=== PATIENT | male | born 1945 | race Caucasian/White ===

== ENCOUNTER 2017-06-20 17:42 | Emergency (ER) | payer OTHER ==
--- NOTE | 2017-06-20 18:09 | CPEKG ---
Heart Rate: 69 RR Interval: 870 P-R Interval: 160 QRSD Interval: 98 QT Interval: 396 QTC Interval: 425 P [place]: 51 QRS [place]: -56 T Wave [place]: 23 EKG Severity - ABNORMAL ECG - EKG Impression: SINUS RHYTHM EKG Impression: LEFT ANTERIOR FASCICULAR BLOCK Electronically Signed By: Maurice Johnson 20-Jun-2017 18:39:02
--- NOTE | 2017-06-20 18:11 | EDPHY ---
H & P Stated Complaint: HTN & EKG changes Time Seen by Provider: 06/20/17 18:07 HPI/ROS: CHIEF COMPLAINT: Asymptomatic hypertension HISTORY OF PRESENT ILLNESS: The patient presents to the ED with asymptomatic hypertension. The patient was seen his nursing surgical services director today when his blood pressure was noted to be 180/100. The patient was having no chest pain or shortness of breath. He went to urgent care and an EKG was performed which reportedly was abnormal and subsequently the patient was referred to the ED for further evaluation. In the emergency department the patient denies any headache , abdominal pain, decreased urine output, prior history of hypertension or additional acute complaints. REVIEW OF SYSTEMS: A comprehensive 10 point review of systems is otherwise negative aside from elements mentioned in the history of present illness. Source: Patient Exam Limitations: No limitations - Personal History Current Tetanus/Diphtheria Vaccine: Unsure Current Tetanus Diphtheria and Acellular Pertussis (TDAP): Unsure - Medical/Surgical History Hx Asthma: No Hx Chronic Respiratory Disease: No Hx Diabetes: No Hx Cardiac Disease: No Hx Renal Disease: No Hx Cirrhosis: No Hx Alcoholism: No Hx HIV/AIDS: No Hx Splenectomy or Spleen Trauma: No Other PMH: BPH - Social History Smoking Status: Never smoked - Physical Exam Exam: General Appearance: Alert, no distress Eyes: Pupils equal and round no pallor or injection ENT, Mouth: Mucous membranes moist Respiratory: There are no retractions, lungs are clear to auscultation Cardiovascular: Regular rate and rhythm Gastrointestinal: Abdomen is soft and nontender, no masses, bowel sounds normal Neurological: A&O, normal motor function, normal sensory exam, normal cranial nerves Skin: Warm and dry, no rashes Musculoskeletal: Neck is supple nontender Extremities: symmetrical, full range of motion Constitutional: Initial Vital Signs Temperature (C) 36.6 C 06/20/17 17:46 Heart Rate 80 06/20/17 17:46 Respiratory Rate 16 06/20/17 17:46 Blood Pressure 192/112 H 06/20/17 17:46 O2 Sat (%) 96 06/20/17 17:46 O2 Delivery Mode Room Air Allergies/Adverse Reactions: No Known Allergies Allergy (Unverified 09/29/15 18:31) Home Medications: Medication Instructions Recorded Cholecalciferol Vit D3 [Vitamin D3 1,000 units PO DAILY 09/29/15 (*)] Dutasteride [Avodart 0.5 MG (*)] 0.5 mg PO DAILY 09/29/15 Multivitamins [Multivitamin (*)] 1 each PO DAILY 09/29/15 [place]-3 Fatty Acids [Fish Oil 1000 1,000 mg PO DAILY 09/29/15 mg (*)] Lisinopril 10 mg PO DAILY #30 tablet 06/20/17 Medical Decision Making - Diagnostics EKG Interpretation: EKG: Complete interpretation has been separately recorded in the [employer] archive. Summary impression: Left anterior fascicular block, unchanged from prior EKG ED Course/Re-evaluation: I reviewed the patient's past medical records. He has had an unremarkable treadmill stress test within the past 2 years. His EKG today demonstrates a left anterior fascicular block without acute ischemic changes. The patient's kidney function is noted to be within normal limits. The patient was given 10 mg of oral lisinopril. Patient's blood pressure has improved in the emergency department. Patient is comfortable being discharged home as he has no symptoms of a hypertensive emergency. The patient will follow up with our on-call outpatient physician Dr. Hdz for a blood pressure recheck in the next week. The patient has been instructed to return to the ED for chest pain, difficulty breathing or other concerns. Patient re-examined at 8:00 p.m., blood pressure currently 170/98. Differential Diagnosis: Differential diagnosis considered includes essential hypertension, hypertensive emergency, hypertensive urgency, ischemia, cardiac arrhythmia - Data Points Laboratory Results: Laboratory Results 06/20/17 18:23 06/20/17 18:23 06/20/17 06/20/17 18:23 18:23 WBC 7.04 10^3/uL 10^3/uL (3.80-9.50) RBC 5.05 10^6/uL 10^6/uL (4.40-6.38) Hgb 15.7 g/dL g/dL (13.7-17.5) Hct 44.4 % % (40.0-51.0) MCV 87.9 fL fL (81.5-99.8) MCH 31.1 pg pg (27.9-34.1) MCHC 35.4 g/dL g/dL (32.4-36.7) RDW 13.2 % % (11.5-15.2) Plt Count 206 10^3/uL 10^3/uL (150-400) MPV 9.5 fL fL (8.7-11.7) Neut % (Auto) 72.3 % % (39.3-74.2) Lymph % (Auto) 19.6 % % (15.0-45.0) [place] % (Auto) 6.1 % % (4.5-13.0) Eos % (Auto) 0.9 % % (0.6-7.6) Baso % (Auto) 0.7 % % (0.3-1.7) Nucleat RBC Rel Count 0.0 % % (0.0-0.2) Absolute Neuts (auto) 5.09 10^3/uL 10^3/uL (1.70-6.50) Absolute Lymphs (auto) 1.38 10^3/uL 10^3/uL (1.00-3.00) Absolute Monos (auto) 0.43 10^3/uL 10^3/uL (0.30-0.80) Absolute Eos (auto) 0.06 10^3/uL 10^3/uL (0.03-0.40) Absolute Basos (auto) 0.05 10^3/uL 10^3/uL (0.02-0.10) Absolute Nucleated RBC 0.00 10^3/uL 10^3/uL (0-0.01) Immature Gran % 0.4 % % (0.0-1.1) Immature Gran # 0.03 10^3/uL 10^3/uL (0.00-0.10) Sodium 142 mEq/L mEq/L (134-144) Potassium 4.0 mEq/L mEq/L (3.5-5.2) Chloride 108 mEq/L mEq/L (97-110) Carbon Dioxide 21 mEq/l L mEq/l (22-31) Anion Gap 13 mEq/L mEq/L (8-16) BUN 15 mg/dL mg/dL (7-23) Creatinine 0.9 mg/dL mg/dL (0.7-1.3) Estimated GFR > 60 Glucose 113 mg/dL H mg/dL (70-100) Calcium 9.7 mg/dL mg/dL (8.5-10.4) Troponin I < 0.012 ng/mL ng/mL (0-0.034) Departure - Departure Disposition: Home, Routine, Self-Care Clinical Impression: Hypertension Condition: Good Instructions: Hypertension (ED) Additional Instructions: 1. Please begin lisinopril as directed for your elevated blood pressure. 2. Please follow up with the on-call outpatient physician you have been referred to for a blood pressure recheck within the next 1-2 weeks. 3. Please check your blood pressure in the morning and night and keep a log of the reading. 4. Please return to the ED for markedly elevated blood pressure, headache, numbness, weakness, chest pain, difficulty breathing or other concerns. Referrals: Brandin Hdz DO [Medical Doctor] - As per Instructions Prescriptions: Lisinopril 10 mg PO DAILY #30 tablet
[2017-06-20 18:37] LABS: % IMMATURE GRANULYOCYTES 0.4 % (0.0-1.1); ABSOLUTE IMMATURE GRANULOCYTES 0.03 10^3/uL (0.00-0.10); ADD DIFF? NO; ADD MORPH? NO; ADD SCAN? NO; ATYPICAL LYMPHOCYTE FLAG 0 (0-99); FRAGMENT RBC FLAG 0 (0-99); HEMATOCRIT 44.4 % (40.0-51.0); HEMOGLOBIN 15.7 g/dL (13.7-17.5); LEFT SHIFT FLG 0 (0-99); LIPEMIA HEMOLYSIS FLAG 90 (0-99); MEAN CELL HEMOGLOBIN 31.1 pg (27.9-34.1); MEAN CELL HEMOGLOBIN CONCENTR. 35.4 g/dL (32.4-36.7); MEAN CELL VOLUME 87.9 fL (81.5-99.8); MEAN PLATELET VOLUME 9.5 fL (8.7-11.7); PLATELET CLUMPS FLAG 0 (0-99); PLATELET COUNT 206 10^3/uL (150-400); RED BLOOD CELL COUNT 5.05 10^6/uL (4.40-6.38); RED CELL DISTRIBUTION WIDTH 13.2 % (11.5-15.2)
[2017-06-20 19:13] LABS: ANION GAP 13 mEq/L (8-16); CALCIUM 9.7 mg/dL (8.5-10.4); CARBON DIOXIDE 21 mEq/l (22-31); CHLORIDE 108 mEq/L (97-110); CREATININE 0.9 mg/dL (0.7-1.3); GLOMERULAR FILTRATION RATE > 60; GLUCOSE 113 mg/dL (70-100); SODIUM 142 mEq/L (134-144)
[2017-06-20] MEDS ORDERED: LISINOPRIL 20 MG TAB ONE (19:15)
[2017-06-20 19:24] LABS: TROPONIN I < 0.012 ng/mL (0-0.034)
[2017-06-20 20:05] VITALS: RESP 16
[2017-06-20 20:21] VITALS: BP 157/84; PULSE 75; TEMP 97.7; O2SAT 98
[2017-06-21] MEDS ORDERED: LISINOPRIL 10 MG TAB PO ONE (09:00)
== END 2017-06-20 20:28 | disposition home or self-care (01) ==
DX: I10 Essential (primary) hypertension (principal)

== ENCOUNTER 2017-06-26 18:18 | Emergency (ER) | payer OTHER ==
[2017-06-26] MEDS ORDERED: LISINOPRIL 20 MG TAB PO ONE (19:05)
--- NOTE | 2017-06-26 19:55 | CPEKG ---
Heart Rate: 64 RR Interval: 938 P-R Interval: 156 QRSD Interval: 98 QT Interval: 408 QTC Interval: 421 P [place]: 36 QRS Home: -42 T Wave Home: 26 EKG Severity - OTHERWISE NORMAL ECG - EKG Impression: SINUS RHYTHM EKG Impression: LEFT AXIS DEVIATION Electronically Signed By: Suhail Joel 26-Jun-2017 21:19:50
[2017-06-26 20:13] VITALS: RESP 16; O2SAT 96
--- NOTE | 2017-06-26 20:21 | EDPHY ---
H & P Time Seen by Provider: 06/26/17 18:47 HPI/ROS: Chief complaint. High blood pressure HPI. 71-year-old male here with asymptomatic hypertension. He was seen June 20 for same. He had not previously been hypertensive. He was had a normal workup and he was started on lisinopril 10 mg. Today he was taking his blood pressure and it was slightly elevated this morning 162/92. This evening it was 219/113 at home. He has no headache, visual symptoms, abdominal pain, chest pain, shortness of breath, focal weakness or paresthesias. 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 However he does have a follow-up appointment next Saturday ROS Constitutional. no fever/chills, no weakness Eyes. no problems with vision ENT. no sore throat, no nasal drainage Cardiovascular. no chest pain Respiratory. no shortness of breath, no cough Abdominal. no abdominal pain, no nausea/vomiting, no diarrhea . no problems urinating MS. no calf pain/swelling, no neck/back pain, no joint pain Skin. no rash Lymph. no swollen glands Neuro. no headache, no dizziness, no difficulty walking or with speech Past Medical/Surgical History: BPH, hypertension Social History: Single, nonsmoker, no alcohol Smoking Status: Never smoked Physical Exam: General Appearance: Alert well-developed male no distress vital signs significant for blood pressure 195/105 Eyes: Pupils equal and round no pallor or injection. ENT, Mouth: Mucous membranes are moist. Respiratory: There are no retractions, lungs are clear to auscultation. Cardiovascular: Regular rate and rhythm. Gastrointestinal: Abdomen is soft and nontender, no masses, bowel sounds normal. Neurological: Awake and alert, sensory and motor exams grossly normal. Skin: Warm and dry, no rashes. Musculoskeletal: Neck is supple nontender. Extremities symmetrical, full range of motion. Psychiatric: Patient is oriented X 3, there is no agitation. Constitutional: Initial Vital Signs Temperature (C) 36.8 C 06/26/17 18: Heart Rate 84 06/26/17 18: Respiratory Rate 18 06/26/17 18: Blood Pressure 195/105 H 06/26/17 18: O2 Sat (%) 95 06/26/17 18: O2 Delivery Mode Room Air Allergies/Adverse Reactions: No Known Allergies Allergy (Verified 06/26/17 18:25) Home Medications: Medication Instructions Recorded Cholecalciferol Vit D3 [Vitamin D3 1,000 units PO DAILY 09/29/15 (*)] Dutasteride [Avodart 0.5 MG (*)] 0.5 mg PO DAILY 09/29/15 Multivitamins [Multivitamin (*)] 1 each PO DAILY 09/29/15 [place]-3 Fatty Acids [Fish Oil 1000 1,000 mg PO DAILY 09/29/15 mg (*)] Lisinopril 10 mg PO DAILY #30 tablet 06/20/17 Lisinopril [Zestril 20 mg (*)] 20 mg PO DAILY #10 tab 06/26/17 Medical Decision Making - Diagnostics EKG Interpretation: EKG interpreted by me shows normal sinus rhythm with normal interval. Left axis deviation. QRS is otherwise normal. There is no significant ST elevation or depression. The rate is 64. This is unchanged from EKG on 06/20/2017 Procedures: Lisinopril 20 mg by mouth ED Course/Re-evaluation: Re-evaluation 8:15 p.m. patient is stable and without symptoms. Patient and I discussed treatment plan, criteria for return, importance of follow-up and further evaluation. He expresses understanding and agreement Differential Diagnosis: Apparent new onset of central hypertension. No evidence for end-organ compromise. We will increase the dose and asked him to follow up next Saturday with his new physician for further blood pressure adjustment - Data Points Medications Given: Discontinued Medications Lisinopril (Zestril) 20 mg PO EDNOW ONE Stop: 06/26/17 19:06 Last Admin: 06/26/17 19:52 Dose: 20 mg Departure - Departure Disposition: Home, Routine, Self-Care Clinical Impression: Hypertension Qualifiers: Hypertension type: essential hypertension Qualified Code(s): I10 - Essential ( primary) hypertension Condition: Good Instructions: Hypertension (ED) Additional Instructions: Increase lisinopril to 20 mg daily. Return for headache, chest discomfort, change in your vision, shortness of breath, abdominal pain. Keep your appointment on Saturday for further evaluation treatment of your blood pressure Referrals: NONE *PRIMARY CARE P,. [Primary Care Provider] - As per Instructions Prescriptions: Lisinopril [Zestril 20 mg (*)] 20 mg PO DAILY #10 tab
[2017-06-26 21:21] VITALS: BP 169/105; PULSE 74; TEMP 97.9
== END 2017-06-26 21:21 | disposition home or self-care (01) ==
DX: I10 Essential (primary) hypertension (principal)

== ENCOUNTER 2018-06-24 13:04 | Emergency (ER) | payer OTHER ==
--- NOTE | 2018-06-24 13:19 | EDPHY ---
H & P Stated Complaint: BURNING FEELING IN CHEST AND L ARM/PROB WORD FINDING NOTED DURING ACUPUNCTU Time Seen by Provider: 06/24/18 13:19 HPI/ROS: CHIEF COMPLAINT: 1. Mild expressive aphasia 2. Posterior chest pain HISTORY OF PRESENT ILLNESS: The patient presents the ED after he developed a episode of mild expressive aphasia earlier today. The patient denies any associated headache, peripheral numbness, weakness or vision changes. He denies any history of fall or trauma. He denies neck pain or cervical manipulation. Additionally over the past 4-5 days the patient has had a posterior left of midline chest pain. It is not worsened with exertion. It is slightly worsened with movement. He denies any associated rash. The patient has a history of hypertension and takes lisinopril and amlodipine for this condition. He denies history of coronary artery disease. He does have a history of a TIA approximately 4 years ago with similar symptoms. REVIEW OF SYSTEMS: A comprehensive 10 point review of systems is otherwise negative aside from elements mentioned in the history of present illness. Source: Patient Exam Limitations: No limitations - Personal History Current Tetanus Diphtheria and Acellular Pertussis (TDAP): Yes - Medical/Surgical History Hx Asthma: No Hx Chronic Respiratory Disease: No Hx Diabetes: No Hx Cardiac Disease: No Hx Renal Disease: No Hx Cirrhosis: No Hx Alcoholism: No Hx HIV/AIDS: No Hx Splenectomy or Spleen Trauma: No Other PMH: BPH/htn - Social History Smoking Status: Never smoked - Physical Exam Exam: General Appearance: Alert, no distress Eyes: Pupils equal and round no pallor or injection ENT, Mouth: Mucous membranes moist Respiratory: There are no retractions, lungs are clear to auscultation Cardiovascular: Regular rate and rhythm Gastrointestinal: Abdomen is soft and nontender, no masses, bowel sounds normal Neurological: A&O, normal motor function, normal sensory exam, normal cranial nerves, NIH stroke scale 0, speech fluent Skin: Warm and dry, no rashes Musculoskeletal: Neck is supple nontender, no carotid bruit Extremities: symmetrical, full range of motion Psychiatric: Patient is oriented X 3, there is no agitation Constitutional: Initial Vital Signs Temperature (C) 36.6 C 06/24/18 13:06 Heart Rate 84 06/24/18 13:06 Respiratory Rate 18 06/24/18 13:06 Blood Pressure 194/107 H 07/24/18 13:06 O2 Sat (%) 95 06/24/18 13:06 O2 Delivery Mode Room Air Allergies/Adverse Reactions: No Known Allergies Allergy (Verified 06/24/18 13:05) Home Medications: Medication Instructions Recorded Cholecalciferol Vit D3 [Vitamin D3 1,000 units PO DAILY 09/29/15 (*)] Multivitamins [Multivitamin (*)] 1 each PO DAILY 09/29/15 [place]-3 Fatty Acids [Fish Oil 1000 1,000 mg PO DAILY 09/29/15 mg (*)] Lisinopril 10 mg PO DAILY #30 tablet 06/20/17 Lisinopril [Zestril 20 mg (*)] 20 mg PO DAILY #10 tab 06/26/17 Medical Decision Making - Diagnostics EKG Interpretation: EKG: Complete interpretation has been separately recorded in the [employer] archive. Summary impression: Sinus rhythm, rate 77, no ST segment elevation or depression, slight left axis deviation Imaging Results: Imaging Impressions Head CT 06/24/18 13:53 Impression: 1. Mild age-related atrophy. 2. No hemorrhage, mass effect, or definite acute peripheral infarct. 3. Minimal nonspecific hypodensities in the white matter of bilateral cerebral hemispheres. Differential diagnosis includes microvascular ischemic disease, post-infectious/post-inflammatory sequela, atypical demyelinating disease, or migraine-related sequela. Small white matter lacunar infarcts may also have this appearance. Findings discussed with Maurice Johnson M.D. at 14:55 hour, 06/24/2018. ED Course/Re-evaluation: The patient presents the ED with 2 issues 1st is a brief episode of word- finding difficulty earlier today. The patient arrived and was noted to be neurologically intact with NIH stroke scale is 0. His speech was fluent. Secondarily, the patient has been experiencing some vague atypical left posterior chest pain. The patient's EKG demonstrates no evidence of ischemia and his troponin is normal. The patient was taken for CT scan of the head and angiographic studies of the head neck and chest. I re-evaluated the patient at 2:45 p.m. He continues to be intact neurologically. I did tell the patient my preference would be for hospitalization in the setting of a possible TIA. The patient does understand the increased risk of stroke following a TIA however would like to be discharged home. He would like to follow up with Neurology as an outpatient and does understand that he should return to the ED immediately for any worsening neurologic symptoms. Regarding the patient's chest pain is atypical in nonexertional. His EKG and troponin are normal. He will be provided the number of our on-call rn research for follow-up for consideration of a treadmill stress test. The patient's blood pressure is currently 150/60. CT angiography of the chest does demonstrate coronary calcifications without evidence of dissection or pulmonary embolism. CT head demonstrates no evidence of an infarct or hemorrhage and CT angiography of the head neck demonstrates no evidence of significant stenosis or dissection. Differential Diagnosis: Differential diagnosis considered includes stroke, TIA, carotid occlusion, acute coronary syndrome, aortic dissection - Data Points Laboratory Results: Laboratory Results 06/24/18 13:00 06/24/18 13:00 06/24/18 06/24/18 06/24/18 13:49 13:26 13:00 WBC RBC Hgb POC Hgb 14.3 gm/dL gm/dL (13.7-17.5) Hct POC Hct 42 % % (40-51) MCV MCH MCHC RDW Plt Count MPV Neut % (Auto) Lymph % (Auto) [place] % (Auto) Eos % (Auto) Baso % (Auto) Nucleat RBC Rel Count Absolute Neuts (auto) Absolute Lymphs (auto) Absolute Monos (auto) Absolute Eos (auto) Absolute Basos (auto) Absolute Nucleated RBC Immature Gran % Immature Gran # POC Sodium 140 mEq/L mEq/L (135-145) Sodium 138 mEq/L mEq/L (135-145) POC Potassium 3.6 mEq/L mEq/L (3.3-5.0) Potassium 3.9 mEq/L mEq/L (3.3-5.0) POC Chloride 107 mEq/L mEq/L (97-110) Chloride 106 mEq/L mEq/L (97-110) Carbon Dioxide 21 mEq/l L mEq/l (22-31) Anion Gap 11 mEq/L mEq/L (8-16) POC BUN 14 mg/dL mg/dL (7-23) BUN 15 mg/dL mg/dL (7-23) Creatinine 0.8 mg/dL mg/dL (0.7-1.3) POC Creatinine 0.8 mg/dL mg/dL (0.7-1.3) Estimated GFR > 60 Glucose 90 mg/dL mg/dL (70-100) POC Glucose 88 mg/dL mg/dL (70-100) Calcium 9.8 mg/dL mg/dL (8.5-10.4) POC Troponin I 0.00 ng/mL ng/mL (0.00-0.08) 06/24/18 13:00 WBC 7.46 10^3/uL 10^3/uL (3.80-9.50) RBC 5.42 10^6/uL 10^6/uL (4.40-6.38) Hgb 16.7 g/dL g/dL (13.7-17.5) POC Hgb Hct 47.0 % % (40.0-51.0) POC Hct MCV 86.7 fL fL (81.5-99.8) MCH 30.8 pg pg (27.9-34.1) MCHC 35.5 g/dL g/dL (32.4-36.7) RDW 13.2 % % (11.5-15.2) Plt Count 218 10^3/uL 10^3/uL (150-400) MPV 9.3 fL fL (8.7-11.7) Neut % (Auto) 71.8 % % (39.3-74.2) Lymph % (Auto) 22.0 % % (15.0-45.0) [place] % (Auto) 4.3 % L % (4.5-13.0) Eos % (Auto) 0.8 % % (0.6-7.6) Baso % (Auto) 0.7 % % (0.3-1.7) Nucleat RBC Rel Count 0.0 % % (0.0-0.2) Absolute Neuts (auto) 5.36 10^3/uL 10^3/uL (1.70-6.50) Absolute Lymphs (auto) 1.64 10^3/uL 10^3/uL (1.00-3.00) Absolute Monos (auto) 0.32 10^3/uL 10^3/uL (0.30-0.80) Absolute Eos (auto) 0.06 10^3/uL 10^3/uL (0.03-0.40) Absolute Basos (auto) 0.05 10^3/uL 10^3/uL (0.02-0.10) Absolute Nucleated RBC 0.00 10^3/uL 10^3/uL (0-0.01) Immature Gran % 0.4 % % (0.0-1.1) Immature Gran # 0.03 10^3/uL 10^3/uL (0.00-0.10) POC Sodium Sodium POC Potassium Potassium POC Chloride Chloride Carbon Dioxide Anion Gap POC BUN BUN Creatinine POC Creatinine Estimated GFR Glucose POC Glucose Calcium POC Troponin I Point of Care Test Results: Chemistry 06/24/18 06/24/18 13:49 13:26 POC Sodium 140 mEq/L mEq/L (135-145) POC Potassium 3.6 mEq/L mEq/L (3.3-5.0) POC Chloride 107 mEq/L mEq/L (97-110) POC BUN 14 mg/dL mg/dL (7-23) POC Creatinine 0.8 mg/dL mg/dL (0.7-1.3) POC Glucose 88 mg/dL mg/dL (70-100) POC Troponin I 0.00 ng/mL ng/mL (0.00-0.08) ISTAT H&H 06/24/18 13:49 POC Hgb 14.3 gm/dL gm/dL (13.7-17.5) POC Hct 42 % % (40-51) Departure - Departure Disposition: Home, Routine, Self-Care Clinical Impression: TIA (transient ischemic attack), Chest pain Condition: Good Instructions: Transient Ischemic Attack (ED), Chest Pain (ED) Additional Instructions: 1. You were offered admission to the hospital for observation of a possible transient ischemic attack in further workup. You have declined. Please return to the Emergency Department immediately should you reconsider this decision. You have also been given the number of our on-call neurologist, Dr. Jack Ingram. Please contact their office to schedule a follow-up visit. 2. I do recommend taking a 325 mg aspirin on a daily basis. 3. Your cardiac workup is unrevealing. I do recommend following up with Cardiology for consideration of a treadmill stress test. You have been provided the contact information of our on-call rn research Dr. Jhony Bueno. Your chest CT scan demonstrates no evidence of a obvious aneurysm or blood clot. You do have calcifications noted in your coronary arteries which should be evaluated by Cardiology as an outpatient. Referrals: Jhony Bueno MD [Medical Doctor] - As per Instructions Jack Ingram DO [Medical Doctor] - As per Instructions
--- NOTE | 2018-06-24 13:36 | CPEKG ---
Heart Rate: 77 RR Interval: 779 P-R Interval: 156 QRSD Interval: 98 QT Interval: 392 QTC Interval: 444 P [place]: 52 QRS [place]: -38 T Wave [place]: 45 EKG Severity - OTHERWISE NORMAL ECG - EKG Impression: SINUS RHYTHM EKG Impression: LEFT AXIS DEVIATION Electronically Signed By: Maurice Johnson 24-Jun-2018 13:41:16
[2018-06-24 13:43] LABS: PLATELET COUNT 218 10^3/uL (150-400)
[2018-06-24] MEDS ORDERED: IOPAMIDOL (ISOVUE 370) 100 ML BTL IV ONE (14:04)
[2018-06-24 15:09] VITALS: BP 138/78
== END 2018-06-24 15:08 | disposition home or self-care (01) ==
DX: G45.9 Transient cerebral ischemic attack, unspecified (principal); I10 Essential (primary) hypertension
CPT/HCPCS: 70450; 70496; 70498; 71275; 93005; 99285; Q9967; 82435-PO; 82565-PO; 82947-PO; 84132-PO; 84295-PO; 84484-PO; 84520-PO; 85014-PO

== ENCOUNTER 2019-03-13 06:50 | Emergency (ER) | payer OTHER ==
[2019-03-13 06:56] VITALS: BP 126/92
--- NOTE | 2019-03-13 07:07 | EDPHY ---
H & P Stated Complaint: unable to urinate, last void 2230 Time Seen by Provider: 03/13/19 07:00 - Personal History Current Tetanus/Diphtheria Vaccine: Yes - Medical/Surgical History Hx Asthma: No Hx Chronic Respiratory Disease: No Hx Diabetes: No Hx Cardiac Disease: No Hx Renal Disease: No Hx Cirrhosis: No Hx Alcoholism: No Hx HIV/AIDS: No Hx Splenectomy or Spleen Trauma: No Other PMH: BPH/htn - Social History Smoking Status: Never smoked Constitutional: Initial Vital Signs Temperature (C) 36.5 C 03/13/19 06:52 Heart Rate 106 H 03/13/19 06:52 Respiratory Rate 18 03/13/19 06:52 Blood Pressure 126/92 H 03/13/19 06:52 O2 Sat (%) 95 03/13/19 06:52 O2 Delivery Mode Room Air Allergies/Adverse Reactions: No Known Allergies Allergy (Verified 06/24/18 13:05) Home Medications: Medication Instructions Recorded Cholecalciferol Vit D3 [Vitamin D3 1,000 units PO DAILY 09/29/15 (*)] Multivitamins [Multivitamin (*)] 1 each PO DAILY 09/29/15 [place]-3 Fatty Acids [Fish Oil 1000 1,000 mg PO DAILY 09/29/15 mg (*)] Lisinopril 10 mg PO DAILY #30 tablet 06/20/17 Lisinopril [Zestril 20 mg (*)] 20 mg PO DAILY #10 tab 06/26/17 Amiloride 03/13/19 Cephalexin [Keflex (RX)] 500 mg PO TID #14 cap 03/13/19 Medical Decision Making ED Course/Re-evaluation: CHIEF COMPLAINT: Urinary retention HISTORY OF PRESENT ILLNESS: The patient is a 73 y/o male with a history of BPH complaining of an inability to urinate since 22:30 last night, 9 hours ago. The patient states that he normally does not get up in the middle of the night to urinate. Around 5 years ago he had similar symptoms and required a catheter for several days. He is followed by Dr. Ontiveros, urologist, who he saw 2 days ago. No fever, headache, body aches, lightheadedness, chest pain, heart palpitations, shortness of breath , cough, abdominal pain, bowel complaints, numbness, paresthesias. REVIEW OF SYSTEMS: A 10 point review of systems was performed and is negative with the exception of the elements mentioned in the history of present illness. PHYSICAL EXAM: HR, BP, O2 Sat, RR. Temp noted General Appearance: Alert, well hydrated, appropriate, and non-toxic appearing. Head: Atraumatic without scalp tenderness or obvious injury Eyes: Pupils equal, round, reactive to light and accommodation, EOMI, no trauma , no injection. Ears: Clear bilaterally, no perforation, normal landmarks Nose: Atraumatic, no rhinorrhea, clear. Throat: There is no erythema or exudates, no lesions, normal tonsils, mucus membranes moist. Neck: Supple, 2+ carotid upstroke, nontender, no lymphadenopathy. Respiratory: No retractions, no distress, no wheezes, and no accessory muscle use. Lungs are clear to auscultation bilaterally. Cardiovascular: Regular rate and rhythm, no murmurs, rubs, or gallops. Bilateral carotid, radial, dorsalis pedis, and posterior tibial pulses intact. Good capillary refill all extremities. Gastrointestinal: Abdomen is soft, nontender, non-distended, no masses, no rebound, no guarding, no peritoneal signs. Musculoskeletal: Normal active ROM of all extremities, atraumatic. Neurological: Alert, appropriate, and interactive. The patient has normal DTRs and non-focal cranial nerves, motor, sensory, and cerebellar exam. Skin: No rashes, good turgor, no nodules on palpation. Past medical history: BPH, hypertension Past surgical history: Denies Family history: Denies Social history: DIAGNOSTICS/PROCEDURES/CRITICAL CARE TIME: Bladder scan: 700mL DIFFERENTIAL DIAGNOSIS: The differential diagnosis for the patient's urinary retention included but was not limited to medication side effect, neurologic causes, outflow obstruction including prostatic hypertrophy, and infection. MEDICAL DECISION MAKING: This patient has 700 mL of urine in his bladder based on ultrasound scan. He has had a similar episode about 2 years ago. He is followed by Urology for an enlarged prostate but it does not seem to affect his urethra or his urination. He does not even get up at night to urinate usually. Last time this happened he stated they took the catheter out after a couple of days and he did need any further procedures. We will do a similar thing today. Catheter has been placed with 600 out so far and still draining. There is a small amount of blood in his urine. He will follow up with his urologist. I will send the urine for analysis however I will start him on Keflex due to the indwelling catheter regardless and will discharge him home before the urinalysis is back. - Data Points Laboratory Results: 03/13/19 07:35 Urine Color YELLOW Urine Appearance CLEAR Urine pH 6.0 (5.0-7.5) Ur Specific [place] 1.006 (1.002-1.030) Urine Protein NEGATIVE (NEGATIVE) Urine Ketones NEGATIVE (NEGATIVE) Urine Blood 2+ H (NEGATIVE) Urine Nitrate NEGATIVE (NEGATIVE) Urine Bilirubin NEGATIVE (NEGATIVE) Urine Urobilinogen NEGATIVE EU EU (0.2-1.0) Ur Leukocyte Esterase NEGATIVE (NEGATIVE) Urine RBC Pending Urine WBC Pending Ur Epithelial Cells Pending Urine Glucose NEGATIVE (NEGATIVE) Medications Given: Discontinued Medications Cephalexin HCl (Keflex) 500 mg PO EDNOW ONE PRN Reason: Protocol Stop: 03/13/19 07:20 Last Admin: 03/13/19 07:48 Dose: 500 mg Departure - Departure Disposition: Home, Routine, Self-Care Clinical Impression: Acute retention of urine Condition: Good Instructions: Cephalexin (By mouth), Urinary Retention in Men (ED), Rodriguez Catheter Placement and Care (ED) Additional Instructions: 1.Take Keflex as prescribed. 2. Follow up with a urologist to have the catheter removed. 3. Return to the Emergency Department for fever, worsening pain, flank pain or failure to improve within 72 hours. Referrals: Joe Chen MD [Primary Care Provider] - As per Instructions Anshul Ontiveros MD [Medical Doctor] - 2-3 days, call for appt. Prescriptions: Cephalexin [Keflex (RX)] 500 mg PO TID #14 cap Report Scribed for: Suhail Joel Report Scribed by: Shiela Wheat Date of Report: 03/13/19 Time of Report: 07:29
[2019-03-13] MEDS ORDERED: CEPHALEXIN 500 MG CAP PO ONE (07:19)
== END 2019-03-13 07:45 | disposition home or self-care (01) ==
PROC: 0T9B70Z Drainage of Bladder with Drainage Device, Via Natural or Artificial Opening (ICD-10-PCS; principal; 2019-03-13)
PROC: 4A0D7LZ Measurement of Urinary Volume, Via Natural or Artificial Opening (ICD-10-PCS; principal; 2019-03-13)
DX: N40.1 Benign prostatic hyperplasia with lower urinary tract symptoms (principal); R33.9 Retention of urine, unspecified; I10 Essential (primary) hypertension

== ENCOUNTER 2019-03-13 12:18 | Emergency (ER) | payer OTHER ==
--- NOTE | 2019-03-13 12:23 | EDPHY ---
H & P Stated Complaint: catheter leaking Time Seen by Provider: 03/13/19 12:23 HPI/ROS: HPI: This is a 73-year-old male who presents with Chief Complaint: Rodriguez catheter leaking Location: Quality: Rodriguez catheter leaking Duration: 1 hr prior to arrival Signs and Symptoms: no fever, no nausea, no vomiting, no hematemesis, no blood in stool, no abdominal bloating, no diarrhea, no back pain, no urinary symptoms , no testicular/groin pain, no indigestion, no chest pain, no shortness of breath Timing: Acute Severity: Moderate Context: Patient was seen this morning with complaints of urinary retention with Rodriguez catheter placement and removal of 700 cc from the bladder. Patient reports that approximately 1 hr ago urine started leaking around the catheter tubing. He has an appointment with Dr. Ontiveros on Saturday for follow-up. Urinalysis was performed earlier in the morning and showed no signs of infection started on Keflex for prophylaxis. Modifying Factors: See above Comment: ROS: A comprehensive 10 system review of systems is otherwise negative aside from elements mentioned in the history of present illness. 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 Family history noncontributory. CONSTITUTIONAL: Extremely polite and talkative well-appearing, elderly male, awake and alert, no obvious distress HEENT: Atraumatic and normocephalic, PERRL, EOMI. Wears glasses Nares patent; no rhinorrhea; no nasal mucosal edema. Tympanic membranes clear. Oropharynx clear, no exudate and moist pink mucosa. Airway patent. No lymphadenopathy. No meningismus. Cardiovascular: Normal S1/S2, regular rate, regular rhythm, without murmur rub or gallop. PULMONARY/CHEST: Symmetrical and nontender. Clear to auscultation bilaterally. Good air movement. No accessory muscle usage. ABDOMEN: Soft, nondistended, nontender, no rebound, no guarding, no peritoneal signs, no masses or organomegaly. No CVAT. Male : circumcised penis, bilateral descended testes, no testicular swelling, no testicular masses, no penile discharge, no lesions, negative Prehn's sign. Rodriguez catheter present in urethra. EXTREMITIES: 2/2 pulses, strength 5/5, no deformities, no clubbing, no cyanosis or edema. NEUROLOGICAL: no focal neuro deficits. GCS 15. SKIN: Warm and dry, no erythema. no rash. Good capillary refill. Source: Patient, RN/MD, Old records Exam Limitations: No limitations - Medical/Surgical History Hx Asthma: No Hx Chronic Respiratory Disease: No Hx Diabetes: No Hx Cardiac Disease: No Hx Renal Disease: No Hx Cirrhosis: No Hx Alcoholism: No Hx HIV/AIDS: No Hx Splenectomy or Spleen Trauma: No Other PMH: BPH/htn - Social History Smoking Status: Never smoked Constitutional: Initial Vital Signs Temperature (C) 36.8 C 03/13/19 12:18 Heart Rate 96 03/13/19 12:18 Respiratory Rate 16 03/13/19 12:18 Blood Pressure 157/84 H 03/13/19 12:18 O2 Sat (%) 96 03/13/19 12:18 O2 Delivery Mode Room Air Allergies/Adverse Reactions: No Known Allergies Allergy (Verified 06/24/18 13:05) Home Medications: Medication Instructions Recorded Cholecalciferol Vit D3 [Vitamin D3 1,000 units PO DAILY 09/29/15 (*)] Multivitamins [Multivitamin (*)] 1 each PO DAILY 09/29/15 [place]-3 Fatty Acids [Fish Oil 1000 1,000 mg PO DAILY 09/29/15 mg (*)] Lisinopril 10 mg PO DAILY #30 tablet 06/20/17 Lisinopril [Zestril 20 mg (*)] 20 mg PO DAILY #10 tab 06/26/17 Amiloride 03/13/19 Cephalexin [Keflex (RX)] 500 mg PO TID #14 cap 03/13/19 Medical Decision Making - Diagnostics Imaging Results: Imaging Impressions Abdomen Ultrasound 03/13/19 15:17 Impression: 1. Prostatomegaly. 2. Rodriguez catheter within the bladder which is decompressed. 3. No bladder distention. ED Course/Re-evaluation: Per chart review shows 18 [place] coude placed with some difficulty earlier in the day. Catheter tubing changed and flushed with ECC return in the catheter tubing but 30 cc leaking out around the catheter through the urethra Balloon was inflated to 10 cc and will be inflated to 15 cc 1400: Urojet applied 1456: RN at bedside now trying to place 18 [place] coude. Still leaking around the catheter through the urethra. ED decision to consult Urology. Spoke with Urology who advised obtain bladder ultrasound and they will update Dr. Leonardo who is in the hospital. 1544: Mitzi with Urology called back and reports that Dr. Leonardo wants patient to be discharged and to go directly to his office for further evaluation. 1640: Ladder ultrasound shows per Radiology: Prostatomegaly. Rodriguez catheter within the bladder which is decompressed. No bladder distention. This patient was seen under the supervision of my secondary supervising physician. I evaluated care for this patient with attending. Differential Diagnosis: Differential diagnosis includes but is not limited to Rodriguez catheter malfunction - Data Points Medications Given: Discontinued Medications Lidocaine (Uroject Lidocaine 2% Jelly) 20 ml UR EDNOW ONE Stop: 03/13/19 14:57 Last Admin: 03/13/19 15:03 Dose: 20 ml Departure - Departure Disposition: Home, Routine, Self-Care Clinical Impression: Encounter for assessment of Rodriguez catheter Condition: Good Instructions: Rodriguez Catheter Placement and Care (ED) Additional Instructions: Continue to take Keflex as prescribed. Please go directly to Dr. Leonardo's office for further evaluation. Referrals: Joe Chen MD [Primary Care Provider] - As per Instructions Anshul Ontiveros MD [Medical Doctor] - As per Instructions
[2019-03-13] MEDS ORDERED: LIDOCAINE 2% JELLY 6 ML TOPICAL SYR ONE (14:33)
[2019-03-13] MEDS ORDERED: LIDOCAINE 2% JELLY 20 ML (UROJECT) UR ONE (14:56)
[2019-03-13 15:45] VITALS: BP 148/78
== END 2019-03-13 16:03 | disposition home or self-care (01) ==
PROC: 0T9B70Z Drainage of Bladder with Drainage Device, Via Natural or Artificial Opening (ICD-10-PCS; principal; 2019-03-13)
DX: T83.038A Leakage of other urinary catheter, initial encounter (principal); Y73.2 Prosthetic and other implants, materials and accessory gastroenterology and urology devices associated with adverse incidents

== ENCOUNTER 2019-05-13 07:58 | Emergency (ER) | payer OTHER | END 2019-05-13 10:14 | disposition home or self-care (01) ==

== ENCOUNTER 2019-05-13 10:56 | Emergency (ER) | payer OTHER | END 2019-05-13 12:54 | disposition home or self-care (01) ==